=== PATIENT | male | born 2000 | race African-American/Black ===

== ENCOUNTER 2023-03-25 22:11 | Emergency (ER) | payer SELFPAY ==
[~2023-03-25] VITALS: Ht 185.4 cm; Wt 86.2 kg
[2023-03-25 22:35] VITALS: BP 142/55; TEMP 98.4
[2023-03-25] MEDS ORDERED: CYCLOBENZAPRINE 10 MG TABLET ONE (22:40)
[2023-03-25] MEDS ORDERED: KETOROLAC TROMETHAMINE INJ 30 MG/ML VIAL ONE (22:40)
[2023-03-25] MEDS ORDERED: CYCL5TAB PO (22:45)
[2023-03-25 23:00] VITALS: O2SAT 100
[2023-03-25] MEDS ORDERED: KETOROLAC TROMETHAMINE INJ 60 MG/2 ML VIAL IM ONE (23:00)
[2023-03-25] MEDS ORDERED: CYCLOBENZAPRINE 10 MG TABLET PO ONE (23:00)
== END 2023-03-25 23:01 | disposition home or self-care (01) ==
LOC: ER 22:24
DX: M25.511 Pain in right shoulder (principal); Z88.0 Allergy status to penicillin
CPT/HCPCS: 99283; 96372; J1885

== ENCOUNTER 2023-11-09 19:40 | Emergency (ER) | payer OTHER ==
[~2023-11-09] VITALS: Ht 185.4 cm; Wt 83.9 kg
[~2023-11-09 19:40] MED LIST: CYCL5TAB PO
[2023-11-09 20:15] VITALS: BP 121/68; TEMP 98; O2SAT 99
== END 2023-11-09 21:59 | disposition home or self-care (01) ==
LOC: ER 19:45
DX: S61.215A Laceration without foreign body of left ring finger without damage to nail, initial encounter (principal); Z79.899 Other long term (current) drug therapy; Z88.0 Allergy status to penicillin; W45.8XXA Other foreign body or object entering through skin, initial encounter; Y93.89 Activity, other specified; Y92.89 Other specified places as the place of occurrence of the external cause; Y99.8 Other external cause status

== ENCOUNTER 2024-05-04 16:53 | Emergency (ER) | payer MEDICAID, OTHER ==
[~2024-05-04] VITALS: Ht 182.9 cm; Wt 85.7 kg
[2024-05-04 17:30] VITALS: BP 144/74; TEMP 97.9; O2SAT 96
== END 2024-05-04 21:27 | disposition home or self-care (01) ==
LOC: ER 16:57
DX: M79.671 Pain in right foot (principal); M79.89 Other specified soft tissue disorders; F12.90 Cannabis use, unspecified, uncomplicated; F17.290 Nicotine dependence, other tobacco product, uncomplicated; Z88.0 Allergy status to penicillin
CPT/HCPCS: 73630-TC

== ENCOUNTER 2024-08-02 18:55 | Emergency (ER) | payer MEDICAID ==
[~2024-08-02] VITALS: Ht 182.9 cm; Wt 88.5 kg
[2024-08-02 19:02] VITALS: BP 154/95; TEMP 98.3; O2SAT 98
[2024-08-02] MEDS ORDERED: ONDA4TAB5 PO (19:15)
== END 2024-08-02 19:23 | disposition home or self-care (01) ==
LOC: ER 19:01
DX: R11.2 Nausea with vomiting, unspecified (principal); F12.90 Cannabis use, unspecified, uncomplicated; F17.290 Nicotine dependence, other tobacco product, uncomplicated; Z88.0 Allergy status to penicillin

== ENCOUNTER 2024-08-06 23:22 | Emergency (ER) | payer MEDICAID ==
[~2024-08-06] VITALS: Ht 188 cm; Wt 87.1 kg
[~2024-08-06 23:22] MED LIST changes: +ONDA4TAB5 PO
[2024-08-07] MEDS ORDERED: LIDOCAINE VISCOUS 2% UD 15 ML UDC ONE (00:13)
[2024-08-07] MEDS ORDERED: MAG HYDROX/AL HYDROX/SIMETH 30 ML UDC ONE (00:13)
[2024-08-07] MEDS ORDERED: ONDANSETRON HCL/PF 4 MG/2 ML VIAL ONE (00:13)
[2024-08-07] MEDS: LIDOCAINE VISCOUS 2% UD 15 ML UDC MM ONE (00:36)
[2024-08-07] MEDS: MAG HYDROX/AL HYDROX/SIMETH 30 ML UDC PO ONE (00:36)
[2024-08-07] MEDS: ONDANSETRON HCL/PF 4 MG/2 ML VIAL IVP ONE (00:36)
[2024-08-07] MEDS: IV NS 0.9% 1,000 ML BAG IV ONE (00:36)
[2024-08-07 00:39] LABS: BASOPHILS % (AUTO) 0.3 % (0.0-2.0); EOSINOPHILS # (AUTO) 0.1 K/uL (0.0-0.7); HEMATOCRIT 45 % (39-51); HEMOGLOBIN 16.1 g/dL (13.5-17.5); LYMPHOCYTES % (AUTO) 12.3 % (20.0-44.0); MEAN CORPUSCULAR HEMOGLOBIN 33 PG (26.0-33.0); MEAN CORPUSCULAR HGB CONC 35 g/dl (31.0-36.0); MEAN CORPUSCULAR VOLUME 92 fL (80-96); MONOCYTES # (AUTO) 0.7 K/uL (0.1-1.30); MONOCYTES % (AUTO) 7.9 % (2.0-12.0); NEUTROPHILS # (AUTO) 6.5 K/uL (1.8-8.9); NEUTROPHILS % (AUTO) 78.5 % (43.0-81.0); PLATELET COUNT (AUTO) 197 K/uL (150-450); RED BLOOD CELL COUNT(AUTO) 4.91 MIL/uL (4.5-6.0); RED CELL DISTRIBUTION WIDTH 13.4 % (11.5-15.0); WHITE BLOOD COUNT (AUTO) 8.3 K/uL (4.3-11.0)
[2024-08-07 00:47] LABS: CALCIUM, SERUM 9.6 mg/dL (8.5-10.1); CREATININE 1.1 mg/dL (0.6-1.3); POTASSIUM 4.2 mmol/L (3.5-5.1)
[2024-08-07 00:53] LABS: ALBUMIN 4.4 g/dL (3.4-5.0); BILIRUBIN,DIRECT 0.1 mg/dL (0.0-0.2); BILIRUBIN,TOTAL 0.4 mg/dL (0.2-1.0); TOTAL PROTEIN, SERUM 7.9 g/dL (6.4-8.2)
[2024-08-07 03:21] VITALS: BP 159/89; TEMP 98.6; O2SAT 98
== END 2024-08-07 03:21 | disposition home or self-care (01) ==
LOC: ER 23:36
DX: K52.9 Noninfective gastroenteritis and colitis, unspecified (principal); R11.2 Nausea with vomiting, unspecified; F12.90 Cannabis use, unspecified, uncomplicated; F17.290 Nicotine dependence, other tobacco product, uncomplicated; Z88.0 Allergy status to penicillin
CPT/HCPCS: 99285; 96374; 96361; 74176; 85025; 80048; 83690; 80076; J2405; J7030